=== PATIENT | female | born 1985 | race African-American/Black ===

== ENCOUNTER 2017-02-24 07:19 | Inpatient (IN) | payer MEDICAID ==
[~2017-02-24] VITALS: Ht 152.4 cm; Wt 93.4 kg
[2017-02-24] MEDS ORDERED: DEXT 5%/LR + PITOCIN 20UNITS/L 1,000 ML IV SCH ×2 (07:27→09:38)
[2017-02-24] MEDS ORDERED: LACTATED RINGERS 1,000 ML IV SCH ×2 (07:27→08:00)
[2017-02-24] MEDS ORDERED: LIDOCAINE HCL 1% 20ML VIAL (Pyxis) INJ INFIL SCH (07:30)
[2017-02-24] MEDS ORDERED: BUTORPHANOL TARTRATE 2 MG/ML VIAL IV PRN (07:30)
[2017-02-24] MEDS ORDERED: NALOXONE HCL 0.4 MG/ML 1ML VIAL IM PRN (07:30)
[2017-02-24] MEDS ORDERED: CARBOPROST TROMETHAMINE 250 MCG/ML AMPUL IM PRN (07:30)
[2017-02-24] MEDS ORDERED: METHYLERGONOVINE MALEATE 0.2 MG/ML IM PRN (07:30)
[2017-02-24] MEDS ORDERED: PREN-88 PO (07:35)
[2017-02-24 07:56] LABS: BASOPHILS % 0.4 % (0.0-2.0); EOSINOPHILS % 0.4 % (0.0-5.0); HEMATOCRIT. 36.6 % (36.0-48.0); HEMOGLOBIN. 12.6 g/dL (12.0-16.0); LYMPHOCYTES % 23.4 % (20.0-50.0); MEAN CORPUSCULAR HEMOGLOBIN 30.9 pg (28.0-32.0); MEAN CORPUSCULAR VOLUME 89.7 fL (81.0-99.0); MEAN PLATELET VOLUME 9.7 fl (7.4-10.4); NEUTROPHILS % 68.8 % (40.0-76.0); PLATELET 235 x1000/uL (130-400); RED BLOOD CELL COUNT 4.08 mill/uL (4.2-5.4); RED CELL DISTRIBUTION WIDTH 13.3 % (11.6-14.6)
[2017-02-24 07:57] LABS: CLARITY URINE CLOUDY (CLEAR); COLOR URINE DARK YELLOW (YELLOW); GLUCOSE URINE NEGATIVE (NEGATIVE); KETONES URINE NEGATIVE (NEGATIVE); LEUKOCYTE ESTERASE URINE 3+ (NEGATIVE); NITRITE URINE NEGATIVE (NEGATIVE); OCCULT BLOOD URINE 1+ (NEGATIVE); PROTEIN URINE TRACE (NEGATIVE); SPECIFIC GRAVITY URINE 1.026 (1.005-1.030)
[2017-02-24] MEDS ORDERED: PENICILLIN G POTASSIUM 5 MMU in DEXT 5% WATER 100 ML IV SCH (08:00)
[2017-02-24 08:04] LABS: INR 0.9; PARTIAL THROMBOPLASTIN TIME 27.1 sec (23.4-31.0); PROTHROMBIN TIME 9.3 sec (9.4-11.6)
[2017-02-24 08:28] LABS: *AMPHETAMINES SCREEN URINE NEGATIVE (NEGATIVE); *BARBITURATES SCREEN URINE NEGATIVE (NEGATIVE); *BENZODIAZEPINES SCREEN URINE NEGATIVE (NEGATIVE); *COCAINE SCREEN URINE NEGATIVE (NEGATIVE); METHADONE URINE SCREEN NEGATIVE (NEGATIVE); OPIATES URINE SCREEN NEGATIVE (NEGATIVE); PHENCYCLIDINE URINE SCREEN NEGATIVE (NEGATIVE)
[2017-02-24 08:30] LABS: CANNABINOID URINE SCREEN PRESUMTIVE POSITIVE (NEGATIVE)
[2017-02-24 08:36] LABS: HEPATITIS B SURFACE ANTIGEN NEGATIVE; RUBELLA IGG 13.4 IU/mL (4.99-10)
[2017-02-24] MEDS ORDERED: MISOPROSTOL 200MCG TABLET RC SCH (09:30)
[2017-02-24] MEDS ORDERED: TETANUS, DIPHTHERIA, PERTUSSIS VAC/PF 0.5ML (>7YR OLD) IM ONE (09:45)
[2017-02-24] MEDS ORDERED: GLYCERIN/WITCH HAZEL LEAF MEDICATED PAD TOP PRN (09:45)
[2017-02-24] MEDS ORDERED: LANOLIN OINT 0.25 GM TUBE TOP PRN (09:45)
[2017-02-24] MEDS ORDERED: DIPHENHYDRAMINE 25MG CAPSULE PO PRN (09:45)
[2017-02-24] MEDS ORDERED: ACETAMINOPHEN WITH CODEINE 300/30MG TABLET PO PRN (09:45)
[2017-02-24] MEDS ORDERED: HEMORRHOIDAL SUPP PR PRN (09:45)
[2017-02-24] MEDS: ACETAMINOPHEN WITH CODEINE 300/30MG TABLET PO PRN ×3 (10:54→23:22)
[2017-02-24] MEDS ORDERED: PENICILLIN G POTASSIUM 2.5 MMU in DEXTROSE 5% WATER 50 ML IV SCH (12:00)
[2017-02-24 12:05] VITALS: BP 97/50
[2017-02-24 12:35] VITALS: BP 92/52
[2017-02-24] MEDS ORDERED: SODIUM CHLORIDE 0.9% 10ML VIAL ONE (13:29)
[2017-02-24] MEDS ORDERED: IOHEXOL-350 100 ML BOTTLE ONE (13:29)
[2017-02-24] MEDS: IBUPROFEN 400MG TABLET PO PRN (13:58)
[2017-02-24] MEDS ORDERED: MISOPROSTOL 200MCG TABLET ONE (14:31)
[2017-02-24 20:00] VITALS: BP 122/88
[2017-02-24 20:24] LABS: HEMATOCRIT. 31.7 % (36.0-48.0); HEMOGLOBIN. 10.8 g/dL (12.0-16.0); MEAN CORPUSCULAR HEMOGLOBIN 30.5 pg (28.0-32.0); MEAN CORPUSCULAR VOLUME 89.6 fL (81.0-99.0); PLATELET 208 x1000/uL (130-400); RED BLOOD CELL COUNT 3.53 mill/uL (4.2-5.4); RED CELL DISTRIBUTION WIDTH 13.3 % (11.6-14.6)
[2017-02-24] MEDS: NITROFURANTOIN 100MG M/M CAPSULE PO SCH (21:25)
[2017-02-24] MEDS: DOCUSATE SODIUM 100MG CAPSULE PO SCH (21:25)
[2017-02-24] MEDS: SIMETHICONE 80MG TABLET CHEW PO SCH (21:26)
[2017-02-24 21:45] LABS: PLATELET ESTIMATE NORMAL
[2017-02-24 23:29] VITALS: BP 120/75
[2017-02-25] MEDS: ACETAMINOPHEN WITH CODEINE 300/30MG TABLET PO PRN ×4 (02:43→23:05)
[2017-02-25 04:40] VITALS: BP 102/63
[2017-02-25 04:42] VITALS: BP 102/63
[2017-02-25 07:02] LABS: BASOPHILS % 0.2 % (0.0-2.0); EOSINOPHILS % 0.4 % (0.0-5.0); HEMOGLOBIN. 10.7 g/dL (12.0-16.0); LYMPHOCYTES % 24.3 % (20.0-50.0); MEAN CORPUSCULAR HEMOGLOBIN 30.5 pg (28.0-32.0); MEAN CORPUSCULAR VOLUME 91.3 fL (81.0-99.0); MEAN PLATELET VOLUME 9.9 fl (7.4-10.4); MONOCYTES % 4.3 % (2.0-8.0); NEUTROPHILS % 70.8 % (40.0-76.0); PLATELET 195 x1000/uL (130-400); RED BLOOD CELL COUNT 3.51 mill/uL (4.2-5.4); RED CELL DISTRIBUTION WIDTH 14.1 % (11.6-14.6)
[2017-02-25 08:00] VITALS: BP 115/56
[2017-02-25] MEDS: SIMETHICONE 80MG TABLET CHEW PO SCH ×4 (08:55→21:12)
[2017-02-25] MEDS: PRENATAL VIT/FE FUMARATE/FA TABLET PO SCH (08:56)
[2017-02-25] MEDS: NITROFURANTOIN 100MG M/M CAPSULE PO SCH ×2 (08:56→21:11)
[2017-02-25] MEDS: FERROUS SULFATE 325MG TABLET PO SCH ×2 (12:40→17:44)
[2017-02-25 16:02] VITALS: BP 125/67
[2017-02-25 17:23] LABS: CREATINE KINASE 261 IU/L (26-192)
[2017-02-25 19:35] VITALS: BP 114/58
[2017-02-25] MEDS: DOCUSATE SODIUM 100MG CAPSULE PO SCH (21:12)
[2017-02-25] MEDS: IBUPROFEN 400MG TABLET PO PRN (23:06)
[2017-02-25 23:45] VITALS: BP 129/78
[2017-02-26 03:50] VITALS: BP 117/63
[2017-02-26 07:26] VITALS: BP 121/67
[2017-02-26] MEDS: SIMETHICONE 80MG TABLET CHEW PO SCH (07:57)
[2017-02-26] MEDS: NITROFURANTOIN 100MG M/M CAPSULE PO SCH (07:58)
[2017-02-26] MEDS: FERROUS SULFATE 325MG TABLET PO SCH (07:58)
[2017-02-26] MEDS: PRENATAL VIT/FE FUMARATE/FA TABLET PO SCH (07:58)
[2017-02-26] MEDS: ACETAMINOPHEN WITH CODEINE 300/30MG TABLET PO PRN (07:59)
[2017-03-04 04:18] LABS: CANNABINOID CONFIRMATION URINE Negative (Cutoff=10)
== END 2017-02-26 11:30 | disposition home or self-care (01) | DRG 560 ==
LOC: OBSVTOIN 07:19 → L&D 07:19 → 7EST PP/OB 12:01
PROVIDERS: ADMIT Specialist; ATTEND Specialist
PROC: 10E0XZZ Delivery of Products of Conception, External Approach (ICD-10-PCS; principal; 2017-02-24 09:16)
DX: O77.0 Labor and delivery complicated by meconium in amniotic fluid (principal); O75.3 Other infection during labor; Z68.41 Body mass index [BMI] 40.0-44.9, adult; O99.324 Drug use complicating childbirth; O99.214 Obesity complicating childbirth; F12.10 Cannabis abuse, uncomplicated; Z37.0 Single live birth; Z3A.38 38 weeks gestation of pregnancy; Z64.1 Problems related to multiparity
CPT/HCPCS: 36415; 71020; 71275; 80305; 80349; 81001; 82550; 82565; 84520; 85007; 85025; 85027; 85610; 85730; 86592; 86703; 86762; 86850; 86900; 87040; 87340; 90715; 93005; 93970; A4216; J2540; J2590; J3490; J7060; J7120; Q9967

== ENCOUNTER 2017-05-20 11:30 | Emergency (ER) | payer MEDICAID ==
[~2017-05-20] VITALS: Ht 152.4 cm; Wt 73.0 kg
[~2017-05-20 11:30] MED LIST: PREN-88 PO
[2017-05-20] MEDS ORDERED: KETOROLAC 30MG/ML VIAL IV STA (16:05)
[2017-05-20] MEDS ORDERED: SODIUM CHLORIDE 0.9% 1,000 ML IV ONE (16:05)
[2017-05-20 16:25] LABS: BASOPHILS % 0.8 % (0.0-2.0); EOSINOPHILS % 1.7 % (0.0-5.0); HEMOGLOBIN. 13.6 g/dL (12.0-16.0); LYMPHOCYTES % 36.3 % (20.0-50.0); MEAN CORPUSCULAR HEMOGLOBIN 30.8 pg (28.0-32.0); MEAN CORPUSCULAR VOLUME 90.7 fL (81.0-99.0); MEAN PLATELET VOLUME 8.1 fl (7.4-10.4); MONOCYTES % 8.3 % (2.0-8.0); NEUTROPHILS % 52.9 % (40.0-76.0); PLATELET 300 x1000/uL (130-400); RED BLOOD CELL COUNT 4.41 mill/uL (4.2-5.4); RED CELL DISTRIBUTION WIDTH 14.3 % (11.6-14.6)
[2017-05-20 16:29] LABS: CARBON DIOXIDE 29 mEq/L (21-32); CHLORIDE 106 mEq/L (98-107)
[2017-05-20 16:36] LABS: PROTHROMBIN TIME 10.4 sec (9.4-11.6)
[2017-05-20 17:00] LABS: CLARITY URINE CLEAR (CLEAR); COLOR URINE YELLOW (YELLOW); GLUCOSE URINE NEGATIVE (NEGATIVE); KETONES URINE NEGATIVE (NEGATIVE); LEUKOCYTE ESTERASE URINE NEGATIVE (NEGATIVE); NITRITE URINE NEGATIVE (NEGATIVE); OCCULT BLOOD URINE NEGATIVE (NEGATIVE); PROTEIN URINE NEGATIVE (NEGATIVE); SPECIFIC GRAVITY URINE 1.024 (1.005-1.030); UROBILINOGEN URINE 0.2 E.U./dL (0.2-1.0)
[2017-05-20 19:10] VITALS: BP 106/54
== END 2017-05-20 19:12 | disposition home or self-care (01) ==
LOC: ER 11:39
DX: R05 Cough (principal); K52.9 Noninfective gastroenteritis and colitis, unspecified; F17.200 Nicotine dependence, unspecified, uncomplicated
CPT/HCPCS: 36415; 71020; 80053; 81003; 81025; 85025; 85610; 96361; 96374; 99285; J1885; J7030; Z7610

== ENCOUNTER 2022-09-07 08:50 | Emergency (ER) | payer MEDICAID ==
[~2022-09-07] VITALS: Ht 157.5 cm; Wt 64.0 kg
[2022-09-07] MEDS ORDERED: KETOROLAC 15MG/ML VIAL IM ONE (09:30)
[2022-09-07] MEDS ORDERED: NAPR-681 MT (09:54)
[2022-09-07 10:03] VITALS: BP 117/64
== END 2022-09-07 10:00 | disposition home or self-care (01) ==
LOC: ER 08:50
DX: M79.10 Myalgia, unspecified site (principal)
CPT/HCPCS: 73080; 73090; 81025; 96372; 99284; J1885; A4565

== ENCOUNTER 2022-09-10 10:36 | Emergency (ER) | payer MEDICAID ==
[~2022-09-10] VITALS: Ht 162.6 cm; Wt 80.0 kg
[~2022-09-10 10:36] MED LIST changes: +NAPR-681 MT; -PREN-88 PO
[2022-09-10] MEDS ORDERED: BACITRACIN ZINC OINT UDPKT TOP ONE (11:45)
[2022-09-10] MEDS ORDERED: TETANUS, DIPHTHERIA, PERTUSSIS VAC/PF 0.5ML (>10YR OLD) IM ONE (11:45)
[2022-09-10] MEDS ORDERED: ACETAMINOPHEN 325MG TABLET PO ONE (11:45)
[2022-09-10] MEDS ORDERED: LIDOCAINE HCL/PF 1% 10 MG/ML 5ML VIAL INFIL ONE ×2 (11:45→12:30)
[2022-09-10 13:18] VITALS: BP 148/91
== END 2022-09-10 13:51 | disposition home or self-care (01) ==
LOC: ER 10:36
DX: S01.412A Laceration without foreign body of left cheek and temporomandibular area, initial encounter (principal); S01.81XA Laceration without foreign body of other part of head, initial encounter; W22.8XXA Striking against or struck by other objects, initial encounter; Y93.89 Activity, other specified; Y92.89 Other specified places as the place of occurrence of the external cause
CPT/HCPCS: 12013; 90471; 90715; 99283; J3490

== ENCOUNTER 2022-09-18 14:07 | Emergency (ER) | payer MEDICAID ==
[~2022-09-18] VITALS: Ht 152.4 cm; Wt 73.0 kg
[2022-09-18 14:15] VITALS: BP 132/87
== END 2022-09-18 15:34 | disposition home or self-care (01) ==
LOC: ER 14:07
DX: Z48.02 Encounter for removal of sutures (principal)
CPT/HCPCS: 99281